=== PATIENT | male | born 1955 | race Caucasian/White ===

== ENCOUNTER 2017-01-26 12:46 | Day surgery (SDC) | payer BC ==
[~2017-01-26 12:46] MED LIST: KETOROLAC TROMETHAMINE 15 MG/ML VIAL IV PRN; LEVOFLOXACIN/D5W 500 MG/100 ML BAG IV PRN; METOCLOPRAMIDE HCL 5 MG/ML VIAL IV PRN; MORPHINE SULFATE 2 MG/ML DISP.SYRIN IV PRN; NORMAL SALINE 1,000 ML IV PRN; ONDANSETRON HCL/PF 2 MG/ML VIAL IV PRN; OXYBUTYNIN CHLORIDE 5 MG TABLET PO PRN; oxyCODONE HCL/ACETAMINOPHEN 1 TAB TABLET PO PRN
[2017-01-26] MEDS ORDERED: NORMAL SALINE 1,000 ML IV ONE (13:11)
--- NOTE | 2017-01-26 14:12 | OR ---
Operative Report - Dictated Report Narrative: Location: Main OR Anesthesia: General Surgeon: Dr. Herrmann Preoperative diagnosis: Right distal ureteral stone(s) Postoperative diagnosis: Tight ureter just distal to stone Procedure: #1 Cystoscopy with Bilateral retrograde pyelograms #2 Right stone manipulation without removal and placement of 6x multi length double j stent Indications: 61-year-old male severely symptomatic right distal ureteral calculus. Discussed options and elected to proceed with above-mentioned procedure. Description: Consent obtained. Patient brought to the operating room where general endotracheal anesthesia was induced. Placed in the dorsal lithotomy position. Prepped and draped. Timeout taken. Rigid cystoscope introduced into the bladder with ease and quick cystoscopy revealed no tumors, stones or suspicious lesions . Bilateral retrogrades obtained and interpreted by Dr. Stanley. Left ureter identified intubated with 5 [place] catheter and left retrograde obtained. 5-7 mL of Isovue was injected. Distal, mid and proximal ureter delicate without filling defects or hydronephrosis. Proximal collecting system nonhydronephrotic, delicate calyces, no filling defects. Essentially normal retrograde. Prompt drainage upon removal of catheter. . Right ureter identified intubated with 5 [place] catheter and right retrograde obtained. Distal ureter was a little narrow and about 5-7 cm from the ureteric orifice shadowing filling defect consistent with known location of stone became apparent with more hydronephrotic-looking ureter proximal to this. Bentson wire advanced through the 5 Tu[place] catheter initially met resistance. I navigated the 5 Tu[place] catheter closer to the wire and after a few attempts was able to bypass stone. There was prompt drainage of hydronephrotic blood- tinged urine but no evidence of infection. Visually ureteric orifice looked a little narrow however I did promise the patient I would try to retrieve stone so I advanced the Bentson wire to the renal pelvis remove the 5 Tu[place] catheter and secured it as a safety wire. Semirigid ureteroscope was then navigated into the bladder. In an effort to minimize trauma/abrasion to the distal ureter I passed the Super Stiff wire through the semirigid scope and used both wires to bridge the ureter open. I was able to navigate past the intramural portion fairly easily without resistance and proximally to within a centimeter or 2 of the stone however the caliber of the ureter narrowed and the resistance on the scope increased significantly. I did not feel comfortable trying to force the scope past this point as the ureter looked pretty narrow and I had worry about causing trauma/avulsion. I therefore backed out the semirigid ureteroscope and left both wires in place. I obtained the dual lumen catheter and attempted to passively dilate the ureter. I injected contrast prior to that passive dilation confirming that the stone was away from the impacted portion and floating in the more hydronephrotic ureter. With the dual lumen catheter over the Super Stiff wire I tried to bypass that area of narrowing that I encountered with the semirigid scope and again met significant resistance. At this point became apparent that portion of the ureter is very narrow and would either require passive dilation or balloon dilation to bypass. My goal here was to get him on vacation without a stent and so whether I ballooned or not he would end up with a stent for over a week and so I elected to not balloon and allow for passive dilation as ballooning increases the risk of ureteral trauma and stricturing. 6 by multi length stent was deployed over the Super Stiff wire with a good curl in the kidney fluoroscopically and a good curl in the bladder fluoroscopically. I did have a loop up in the upper pole and 1 in the renal pelvis. Specimen: None EBL: 0 ml Condition: tolerated procedure Important findings: Tight ureter just distal to stone several centimeters away from the ureteric orifice post successful manipulation and stenting Follow-up: Will all depend on how he does with the stent. If he has no stent discomfort or minimal stent discomfort should be okay for him to go on vacation and we can treat when he gets back. If he is miserable I may attempt to treat Tuesday or Tuesday. He is supposed to leave for vacation on Tuesday. Passive dilation usually successful after 42-76 hours.
[2017-01-26] MEDS ORDERED: RINGERS SOLUTION,LACTATED 1,000 ML IV ONE (14:31)
[2017-01-26 15:51] VITALS: BP 120/65
== END 2017-01-26 12:47 | disposition home or self-care (01) ==
LOC: AMB 12:46
PROVIDERS: ATTEND Urology
PROC: 0TN68ZZ Release Right Ureter, Via Natural or Artificial Opening Endoscopic (ICD-10-PCS; 2017-01-26)
PROC: 0WHR8YZ Insertion of Other Device into Genitourinary Tract, Via Natural or Artificial Opening Endoscopic (ICD-10-PCS; 2017-01-26)
PROC: 0T768DZ Dilation of Right Ureter with Intraluminal Device, Via Natural or Artificial Opening Endoscopic (ICD-10-PCS; principal; 2017-01-26 14:05)
DX: N20.1 Calculus of ureter (principal); E66.9 Obesity, unspecified; Z68.30 Body mass index [BMI] 30.0-30.9, adult; F17.210 Nicotine dependence, cigarettes, uncomplicated